=== PATIENT | male | born 1985 | race African-American/Black ===

== ENCOUNTER 2017-06-24 15:23 | Emergency (ER) | payer SELFPAY ==
[2017-06-24] MEDS ORDERED: NORMAL SALINE 1000 ML 1,000 ML IV ONE (15:53)
[2017-06-24] MEDS ORDERED: DIAZEPAM INJ 10 MG/2 ML DISP.SYRIN IV ONE (16:06)
[2017-06-24 16:22] LABS: ABSOLUTE EOSINOPHILS # (AUTO) 0.1 10^3/uL (0.0-0.6); ABSOLUTE LYMPHOCYTES (AUTO) 2.1 10^3/uL (0.5-4.7); ABSOLUTE MONOCYTES (AUTO) 0.7 10^3/uL (0.1-1.4); BASOPHILS % (AUTO) 0.4 % (0-2); EOSINOPHILS % (AUTO) 0.9 % (0-6); HEMATOCRIT 41.3 % (37.9-51.0); HEMOGLOBIN 13.9 g/dL (13.5-17.0); HGB HCT DIFFERENCE 0.4; LYMPHOCYTES % (AUTO) 26.4 % (13-45); MEAN CORPUSCULAR HEMOGLOBIN 29.5 pg (27.0-33.4); MEAN CORPUSCULAR HGB CONC 33.7 g/dL (32.0-36.0); MEAN CORPUSCULAR VOLUME 87 fl (80-97); RED BLOOD COUNT 4.73 10^6/uL (4.35-5.55); RED CELL DISTRIBUTION WIDTH 13.7 % (11.5-14.0); SEGMENTED NEUTROPHILS % (AUTO) 63.3 % (42-78); WHITE BLOOD COUNT 7.9 10^3/uL (4.0-10.5)
[2017-06-24 16:35] LABS: ALANINE AMINOTRANSFERASE 33 U/L (21-72); ALBUMIN 4.4 g/dL (3.5-5.0); ALKALINE PHOSPHATASE 55 U/L (38-126); ANION GAP 9 (5-19); ASPARTATE AMINO TRANSFERASE 32 U/L (17-59); BILIRUBIN,DIRECT 0.4 mg/dL (0.0-0.4); BILIRUBIN,TOTAL 1.1 mg/dL (0.2-1.3); BLOOD UREA NITROGEN 14 mg/dL (7-20); CALCIUM 9.8 mg/dL (8.4-10.2); CARBON DIOXIDE 27 mmol/L (22-30); CHLORIDE 103 mmol/L (98-107); CREATINE KINASE 456 U/L (55-170); CREATININE RESULT 1.01 mg/dL (0.52-1.25); GLUCOSE 89 mg/dL (75-110); MAGNESIUM 2.1 mg/dL (1.6-2.3); POTASSIUM 3.9 mmol/L (3.6-5.0); SODIUM 138.7 mmol/L (137-145); TOTAL PROTEIN 7.1 g/dL (6.3-8.2)
--- NOTE | 2017-06-24 17:07 | RADIOLOGY REPORT (SQ) ---
EXAM DESCRIPTION: CHEST SINGLE VIEW COMPLETED DATE/TIME: 06/24/2017 4:38 pm REASON FOR STUDY: muscle spasms COMPARISON: None. EXAM PARAMETERS: NUMBER OF VIEWS: One view. TECHNIQUE: Single frontal radiographic view of the chest acquired. RADIATION DOSE: NA LIMITATIONS: None. FINDINGS: LUNGS AND PLEURA: No opacities, masses or pneumothorax. No pleural effusion. MEDIASTINUM AND HILAR STRUCTURES: No masses. Contour normal. HEART AND VASCULAR STRUCTURES: Heart normal in size. Normal vasculature. BONES: No acute findings. HARDWARE: None in the chest. OTHER: No other significant finding. IMPRESSION: NO ACUTE RADIOGRAPHIC FINDING IN THE CHEST. TECHNICAL DOCUMENTATION: JOB ID: [id number]
--- NOTE | 2017-06-24 17:28 | ER Document Report ---
ED General - General Chief Complaint: Other Stated Complaint: MUSCLE SPASMS Time Seen by Provider: 06/24/17 15:29 - HPI Notes: Patient is a 32-year-old male with a history of diabetes who presents the ED complaining of muscle spasms, decreased appetite, decreased sleep, fatigue, stress, anxiousness, dozing in and out consciousness 1 week with worsening symptoms over the last 1-2 days. states that he has been very stressed with moving his family over the last couple of months. states that they were on their way to [place] when they found her cane was commented and they were going to be in the track of it so they packed up and move back. Patient states that he has not been sleeping well and has been forcing himself week. Patient states that he has been having generalized muscle spasming. He does not take any medications daily. He denies any drug allergies. He does not have any sharp pain or previous injury. Denies any headache, fever, head injury , neck pain, changes in vision/speech/mentation/hearing, URI, sore throat, chest pain, palpitations, syncope, cough, shortness of breath, wheeze, dyspnea, abdominal pain, nausea/vomiting/diarrhea, urinary retention, dysuria, hematuria , numbness/tingling, or rash. - Related Data Allergies/Adverse Reactions: No Known Allergies Allergy (Verified 06/24/17 15:26) Past Medical History - Social History Smoking Status: Former Smoker Chew tobacco use (# tins/day): No Frequency of alcohol use: None Drug Abuse: None Family History: Reviewed & Not Pertinent Past Surgical History: Reports: Hx Orthopedic Surgery Review of Systems - Review of Systems Notes: REVIEW OF SYSTEMS: CONSTITUTIONAL : Denies fever, chills, or sweats. Denies recent illness. EENT: Denies eye, ear, throat, or mouth pain or symptoms. Denies nasal or sinus congestion or discharge. Denies throat, tongue, or mouth swelling or difficulty swallowing. CARDIOVASCULAR: Denies chest pain. Denies palpitations or racing or irregular heart beat. Denies ankle edema. RESPIRATORY: Denies cough, cold, or chest congestion. Denies shortness of breath, difficulty breathing, or wheezing. GASTROINTESTINAL: Denies abdominal pain or distention. Denies nausea, vomiting , or diarrhea. Denies blood in vomitus, stools, or per rectum. Denies black, tarry stools. Denies constipation. GENITOURINARY: Denies difficulty urinating, painful urination, burning, frequency, blood in urine, or discharge. MUSCULOSKELETAL: Denies back or neck pain or stiffness. Denies joint pain or swelling. SKIN: Denies rash, lesions or sores. NEUROLOGICAL: see hpi. Denies confusion or altered mental status. Denies passing out or loss of consciousness. Denies dizziness or lightheadedness. Denies headache. Denies weakness or paralysis or loss of use of either side. Denies problems with gait or speech. Denies sensory loss, numbness, or tingling. Denies seizures. PSYCHIATRIC: see hpi. Denies depression, suicidal ideation, or homicidal ideation. ALL OTHER SYSTEMS REVIEWED AND NEGATIVE. Dictation was performed using [employer] voice recognition software Physical Exam - Vital signs Vitals: Temp Pulse Resp BP Pulse Ox 98.4 F 74 16 159/87 H 99 06/24/17 15:25 06/24/17 15:25 06/24/17 15:25 06/24/17 15:25 06/24/17 15:25 Notes: PHYSICAL EXAMINATION: GENERAL: Well-appearing, well-nourished and in no acute distress. A&Ox4 HEAD: Atraumatic, normocephalic. Non-tender. EYES: Pupils equal round and reactive to light, extraocular movements intact, sclera anicteric, conjunctiva are normal. ENT: EAC clear b/l. TM's intact b/l without erythema, fluid, or perforation. Nares patent and without discharge. oropharynx clear without exudates. No tonsilar hypertrophy or erythema. Moist mucous membranes. No sinus tenderness. NECK: Normal range of motion, supple without lymphadenopathy. No rigidity. No midline tenderness. Spurling negative. NEXUS negative. Chest: No flail chest. equal rise/fall. Non-tender LUNGS: Breath sounds clear to auscultation bilaterally and equal. No wheezes rales or rhonchi. HEART: Regular rate and rhythm without murmurs, rubs, gallops. ABDOMEN: Soft, nontender, nondistended abdomen. No guarding, no rebound. No masses appreciated. Normal bowel sounds present. No CVA tenderness bilaterally. Musculoskeletal: Ext b/l: FROM to passive/active. Strength 5+/5. No deficits noted. No bony tenderness of extremities. + Visual spasming noted to the extremities b/l. Back: FROM to passive/active. Strength 5+/5. No vertebral point tenderness, stepoffs, or deformities. No other bony tenderness or ecchymosis. SLR negative b/l. Extremities: No cyanosis, clubbing, or edema b/l. Peripheral pulses 2+. Capillary refill less than 2 seconds. NEUROLOGICAL: MMSE intact. Cranial nerves grossly intact. Normal speech. Normal sensory, motor exams. Reflexes 2+ b/l. NATE's negative. Pronator drift negative. Heel/lopez, finger/nose wnl. PSYCH: Normal mood, normal affect. SKIN: Warm, Dry, normal turgor, no rashes or lesions noted. Course - Re-evaluation Re-evalutation: 06/24/17 17:30 Patient is an afebrile, well-hydrated, 32-year-old male who presents the ED with anxiety and stress. Vitals are stable. PE unremarkable for any focal neurological deficits. Reviewed with Dr. Moore who also eval'd the patient. Pt was given 1L NS, 5mg Valium with a CBC, CMP, UA/Urine drug screen. CBC, CMP unremarkable. Urine had yet to be collected. After the Valium was given, patient became very talkative, but emotional. Pt was stating how stressed he has been, crying, forcing himself awake every night by walking around, sleeping only 1 hour in the last week approx, and contemplating if he is doing right by his family for moving them frequently. Pt's parents did arrive and were talking with the patient as well. We offered for the patient to stay in the ED for a psych eval. He reviewed this with his family and they declined at this time. Pt would like to go home and have his family help him with his stress. He also declined any Rx's (i.e. valium). resource packet provided. Low suspicoin for any systemic emergent condition at this time. Pt is aware that his condition can change from initial presentation and he needs to monitor symptoms closely and seek medical attention if so. Conservative measures for symptoms otherwise. Recheck with PCM in 2-3 days. Consider consult with Psych/MH. Return to the ED with any worsening/concerning symptoms otherwise as reviewed discharge. Patient and family are in agreement. - Vital Signs Vital signs: Temp Pulse Resp BP Pulse Ox 98.4 F 74 16 159/87 H 99 06/24/17 15:25 06/24/17 15:25 06/24/17 15:25 06/24/17 15:25 06/24/17 15:25 - Laboratory Result Diagrams: 06/24/17 16:00 06/24/17 16:00 Laboratory results interpreted by me: 06/24/17 16:00 Creatine Kinase 456 H Discharge - Discharge Clinical Impression: Anxiety in acute stress reaction Condition: Stable Disposition: HOME, SELF-CARE Instructions: Anxiety (OM) Additional Instructions: Maintain adequate fluid and food intake Rest De-stressing techniques Cool/warm compresses may help Consider a massage Recheck with your PCM in 2-3 days Consider counseling for your stress and anxiety Return to the ED with any worsening symptoms and/or development of fever, headache, chest pain, palpitations, syncope, shortness of breath, trouble breathing, abdominal pain, n/v/d, blood in stool/urine, loss of control of bowel /bladder, urinary retention, muscle weakness/paralysis, saddle anesthesia, numbness/tingling, or other worsening symptoms that are concerning to you. Forms: Elevated Blood Pressure Referrals: [facility] [Provider Group] - Follow up as needed [facility] [Provider Group] - Follow up as needed [facility] [Provider Group] - Follow up as needed
[2017-06-24 19:02] VITALS: BP 153/89
--- NOTE | 2017-06-24 20:15 | EKG REPORT ---
SEVERITY:- NORMAL ECG - SINUS RHYTHM : Confirmed by: Tai Monroe MD 24-Jun-2017 20:15:20
== END 2017-06-24 19:02 | disposition home or self-care (01) ==
LOC: ER 15:23
DX: F41.9 Anxiety disorder, unspecified (principal); F43.0 Acute stress reaction; M62.838 Other muscle spasm
CPT/HCPCS: 93005; 99284; 96374; 36415; 82550; 83735; 85025; 80053; 71010; 93010; J3360; J7030

== ENCOUNTER 2017-06-27 12:51 | Emergency (ER) | payer SELFPAY ==
--- NOTE | 2017-06-27 14:00 | ER Document Report ---
ED Medical Screen (RME) - General Chief Complaint: Possible Overdose Stated Complaint: DIZZINESS Time Seen by Provider: 06/27/17 13:56 Notes: Patient was here recently due to having trouble coping and stress. At that time he did not wait for a psychiatric evaluation. According to mom he did not follow-up. Mom states now for the last several days patient has been staring and repeating the same words over and over. She states that he is unable to follow simple directions. Patient will not interact with me to give a history. TRAVEL OUTSIDE OF THE [place] IN LAST 30 DAYS: No - Related Data Allergies/Adverse Reactions: No Known Allergies Allergy (Verified 06/27/17 13:09) Past Medical History Renal/ Medical History: Denies: Hx Peritoneal Dialysis Past Surgical History: Reports: Hx Orthopedic Surgery Physical Exam - Vital signs Vitals: Temp Pulse Resp BP Pulse Ox 99.2 F 99 18 159/101 H 100 06/27/17 13:05 06/27/17 13:05 06/27/17 13:05 06/27/17 13:05 06/27/17 13:05 Course - Vital Signs Vital signs: Temp Pulse Resp BP Pulse Ox 99.2 F 99 18 159/101 H 100 06/27/17 13:05 06/27/17 13:05 06/27/17 13:05 06/27/17 13:05 06/27/17 13:05
--- NOTE | 2017-06-27 15:01 | ER Document Report ---
ED General - General Mode of Arrival: Ambulatory Information source: Patient TRAVEL OUTSIDE OF THE [place] IN LAST 30 DAYS: No - HPI Onset: Just prior to arrival Onset/Duration: Persistent <SHILO MEJIA - Last Filed: 06/27/17 17:13> <RAFAELDESEAN TIAGO - Last Filed: 06/27/17 21:54> - General Chief Complaint: Possible Overdose Stated Complaint: DIZZINESS Time Seen by Provider: 06/27/17 13:56 Notes: Patient is a 32 year old male that presents to the emergency department today with complaints of bizarre behavior over the last few days. Patient was seen here three days ago for "muscle spasms" which turned into a pysch consult but at that time the patient and family deferred the psych consult. Today the patient's mother is at bedside and she states that the patient decided to move to [place] so he loaded a uhaul and drove to there and then turned right back around and came back here. She reports him acting very bizarre including not eating or drinking. Patient denies any drug usage. (SHILO MEJIA) - Related Data Allergies/Adverse Reactions: No Known Allergies Allergy (Verified 06/27/17 13:09) Home Medications: Current Home Medications No Home Medications 06/27/17 [History] Past Medical History - General Information source: Patient - Social History Smoking Status: Never Smoker Cigarette use (# per day): No Frequency of alcohol use: None Drug Abuse: None Lives with: Family Family History: Reviewed & Not Pertinent - Medical History Medical History: Negative Past Surgical History: Reports: Hx Orthopedic Surgery <SHILO MEJIA - Last Filed: 06/27/17 17:13> Review of Systems - Review of Systems Constitutional: No symptoms reported EENT: No symptoms reported Cardiovascular: No symptoms reported Respiratory: No symptoms reported Gastrointestinal: No symptoms reported Genitourinary: No symptoms reported Male Genitourinary: No symptoms reported Musculoskeletal: No symptoms reported Skin: No symptoms reported Hematologic/Lymphatic: No symptoms reported Neurological/Psychological: See HPI, Other - Bizarre behavior, disoriented, not sleeping -: Yes All other systems reviewed and negative <SHILO MEJIA - Last Filed: 06/27/17 17:13> Physical Exam - Vital signs Interpretation: Normal - General General appearance: Alert In distress: None - HEENT Head: Normocephalic, Atraumatic Eyes: Normal Pupils: PERRL - Respiratory Respiratory status: No respiratory distress Chest status: Nontender Breath sounds: Normal Chest palpation: Normal - Cardiovascular Rhythm: Regular Heart sounds: Normal auscultation Murmur: No - Abdominal Inspection: Normal Distension: No distension Bowel sounds: Normal Tenderness: Nontender Organomegaly: No organomegaly - Back Back: Normal, Nontender - Extremities General upper extremity: Normal inspection, Nontender, Normal color, Normal ROM , Normal temperature General lower extremity: Normal inspection, Nontender, Normal color, Normal ROM , Normal temperature, Normal weight bearing. No: Maddy's sign - Neurological Neuro grossly intact: Yes Cognition: Normal Orientation: AAOx4 Spring Coma Scale Eye Opening: Spontaneous Donnell Coma Scale Verbal: Oriented Donnell Coma Scale Motor: Obeys Commands Spring Coma Scale Total: 15 Speech: Normal Motor strength normal: LUE, RUE, LLE, RLE Sensory: Normal - Psychological Associated symptoms: Flat affect, Unable to sleep, Other - Appears to respond to internal stimuli - Skin Skin Temperature: Warm Skin Moisture: Dry Skin Color: Normal <DESEAN HALL - Last Filed: 06/27/17 21:54> - Vital signs Vitals: Temp Pulse Resp BP Pulse Ox 99.2 F 99 18 159/101 H 100 06/27/17 13:05 06/27/17 13:05 06/27/17 13:05 06/27/17 13:05 06/27/17 13:05 Course - Laboratory Result Diagrams: 06/27/17 14:52 06/27/17 14:52 <SHILO MEJIA - Last Filed: 06/27/17 17:13> - Laboratory Result Diagrams: 06/27/17 14:52 06/27/17 14:52 - Diagnostic Test Radiology reviewed: Reports reviewed <DESEAN HALL - Last Filed: 06/27/17 21:54> - Re-evaluation Re-evalutation: 06/27/17 Patient is a 32-year-old male who is brought in by his family. Patient has not been sleeping. Patient is not acting himself. 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 Apparently he is going to be moving to [place] drove their turn around and drove back. He has been exhibiting unusual behavior for him. Patient appears disheveled which is also unlike him. Patient has no past psychiatric history. Patient is medically stable and will be held for further psychiatric evaluation , placed on IVC paperwork. (DESEAN HALL) - Vital Signs Vital signs: Temp Pulse Resp BP Pulse Ox 97.9 F 69 14 165/89 H 100 06/27/17 19:10 06/27/17 19:10 06/27/17 19:10 06/27/17 19:10 06/27/17 19:10 - Laboratory Laboratory results interpreted by me: 06/27/17 06/27/17 14:52 14:52 Calcium 10.7 H Total Bilirubin 1.5 H Direct Bilirubin 0.5 H Urine Ketones 80 H Salicylates < 1.0 L Acetaminophen < 10 L Discharge <SHILO MEJIA - Last Filed: 06/27/17 17:13> <DESEAN HALL - Last Filed: 06/27/17 21:54> - Discharge Clinical Impression: Acute psychosis Condition: Stable Disposition: PSYCH HOSP/UNIT Scribe Attestation: 06/27/17 21:54 I personally performed the services described in the documentation, reviewed and edited the documentation which was dictated to the scribe in my presence, and it accurately records my words and actions. (DESEAN HALL) Scribe Documentation - Scribe Written by Scribe:: Rad Gamez, 06/27/2017 1732 acting as scribe for :: Rafael <SHILO MEJIA - Last Filed: 06/27/17 17:13>
[2017-06-27 15:06] LABS: ABSOLUTE EOSINOPHILS # (AUTO) 0.2 10^3/uL (0.0-0.6); ABSOLUTE LYMPHOCYTES (AUTO) 2.8 10^3/uL (0.5-4.7); ABSOLUTE MONOCYTES (AUTO) 0.7 10^3/uL (0.1-1.4); ABSOLUTE NEUT (AUTO) 5.3 10^3/uL (1.7-8.2); BASOPHILS % (AUTO) 0.4 % (0-2); EOSINOPHILS % (AUTO) 2.3 % (0-6); HEMATOCRIT 46.9 % (37.9-51.0); HEMOGLOBIN 15.6 g/dL (13.5-17.0); HGB HCT DIFFERENCE -0.1; LYMPHOCYTES % (AUTO) 30.9 % (13-45); MEAN CORPUSCULAR HEMOGLOBIN 29.2 pg (27.0-33.4); MEAN CORPUSCULAR HGB CONC 33.3 g/dL (32.0-36.0); MEAN CORPUSCULAR VOLUME 88 fl (80-97); MONOCYTES % (AUTO) 7.3 % (3-13); RED BLOOD COUNT 5.33 10^6/uL (4.35-5.55); RED CELL DISTRIBUTION WIDTH 13.6 % (11.5-14.0); SEGMENTED NEUTROPHILS % (AUTO) 59.1 % (42-78)
[2017-06-27 15:25] LABS: ALANINE AMINOTRANSFERASE 37 U/L (21-72); ALBUMIN 4.8 g/dL (3.5-5.0); ALKALINE PHOSPHATASE 61 U/L (38-126); ANION GAP 13 (5-19); ASPARTATE AMINO TRANSFERASE 30 U/L (17-59); BILIRUBIN,DIRECT 0.5 mg/dL (0.0-0.4); BILIRUBIN,TOTAL 1.5 mg/dL (0.2-1.3); BLOOD UREA NITROGEN 13 mg/dL (7-20); CALCIUM 10.7 mg/dL (8.4-10.2); CARBON DIOXIDE 27 mmol/L (22-30); CHLORIDE 99 mmol/L (98-107); CREATININE RESULT 1.03 mg/dL (0.52-1.25); GLUCOSE 82 mg/dL (75-110); POTASSIUM 4.7 mmol/L (3.6-5.0); TOTAL PROTEIN 7.9 g/dL (6.3-8.2)
[2017-06-27 15:27] LABS: ALCOHOL < 10 mg/dL (NONE DETECTED)
--- NOTE | 2017-06-27 15:31 | RADIOLOGY REPORT (SQ) ---
EXAM DESCRIPTION: CT HEAD WITHOUT COMPLETED DATE/TIME: 06/27/2017 3:13 pm REASON FOR STUDY: catatonia COMPARISON: None. TECHNIQUE: Axial images acquired through the brain without intravenous contrast. Images reviewed wi th bone, brain and subdural windows. Images stored on PACS. All CT scanners at this facility use dose modulation, iterative reconstruction, and/or weight based d osing when appropriate to reduce radiation dose to as low as reasonably achievable (ALARA). [facility]: Dose Right [facility]: CareDose [facility]: Dose Right [facility]: Teradose 4D [facility]: Smart Eqalix RADIATION DOSE: Up-to-date CT equipment and radiation dose reduction techniques were employed. CTDIv ol: 29.1 mGy. DLP: 687 mGy-cm. mGy. LIMITATIONS: Motion. FINDINGS: VENTRICLES: Normal size and contour. CEREBRUM: No masses. No hemorrhage. No midline shift. No evidence for acute infarction. Normal gra y/white matter differentiation. No areas of low density in the white matter. CEREBELLUM: No masses. No hemorrhage. No alteration of density. No evidence for acute infarction. EXTRAAXIAL SPACES: No fluid collections. No masses. ORBITS AND GLOBE: No intra- or extraconal masses. Normal contour of globe without masses. CALVARIUM: No fracture. PARANASAL SINUSES: No fluid or mucosal thickening. SOFT TISSUES: No mass or hematoma. OTHER: No other significant finding. IMPRESSION: NORMAL BRAIN CT WITHOUT CONTRAST. COMMENT: Quality ID # [id number]: Final reports with documentation of one or more dose reduction techniques (e.g., Automated exposure control, adjustment of the mA and/or kV according to patient size, use of iterative reconstruction technique) TECHNICAL DOCUMENTATION: JOB ID: [id number] [employer]- All Rights Reserved
[2017-06-27 16:12] LABS: APPEARANCE,URINE CLEAR; BILIRUBIN,URINE NEGATIVE (NEGATIVE); GLUCOSE, URINE NEGATIVE (NEGATIVE); KETONES,URINE 80 mg/dL (NEGATIVE); LEUKOCYTE ESTERASE,URINE NEGATIVE (NEGATIVE); NITRITE,URINE NEGATIVE (NEGATIVE); PROTEIN,URINE NEGATIVE (NEGATIVE); URINE SPECIFIC GRAVITY 1.013; UROBILINOGEN,URINE NEGATIVE mg/dL (<2.0)
[2017-06-27] MEDS ORDERED: NORMAL SALINE 1000 ML 1,000 ML IV ONE (16:18)
[2017-06-27 16:26] LABS: URINE BARBITURATES SCREEN NEGATIVE; URINE METHADONE SCREEN NEGATIVE; URINE OPIATES LOW NEGATIVE; URINE PHENCYCLIDINE SCREEN NEGATIVE
--- NOTE | 2017-06-27 17:05 | ER Document Report ---
ED Psych Disorder / Suicide - General Information source: Patient, Parent - mother is bedside, Relative - is bedside TRAVEL OUTSIDE OF THE [place] IN LAST 30 DAYS: No - HPI Patient complains to provider of: Bizarre behavior Onset: Other - March 2017 Onset was: Gradual Suicide Risk Factors: Frightened friends/family, Male Situational problems related to: Other - normal life stressors Normal mood: No Associated symptoms: Auditory hallucinations - pt presents as though he is responding to internal stimuli, Flat affect, Paranoid, Other - random words/ thoughts blurted out Similar symptoms previously: Yes - family reports today is worse Recently seen / treated by doctor: Yes - [facility] ER <CARLOS PANIAGUA - Last Filed: 06/27/17 17:12> <RADHA MASTERSON - Last Filed: 07/01/17 10:27> - General Chief Complaint: Possible Overdose Stated Complaint: DIZZINESS Time Seen by Provider: 06/27/17 13:56 - HPI Notes: Patient is a 32 year old male who presents via his mother and due to concerns over bizarre behaviors. Current presentation includes patient staring off, randomly stating words unrelated to conversation or at abrupt times, etc. Family denies this has occurred in the past, but states he has been acting strange since about March 2016. Patient himself denies suicidal/homicidal ideations. Patient denies hearing voices, seeing things, etc. Attempted to discuss this with patient a myriad of ways, but continues to deny. Patient presents as though he is responding to internal stimuli, aeb staring off, mouthing words, stating random words at random times, etc. 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 She states he slowly worsened, and he was distraught over their living arrangements, which [place]. She states he struggled to sleep and would pace and repeatedly apologize for moving there. She states they were eventually able to get out of their lease because they were not made aware of the flight zone. She states 2 weeks ago he decided they needed to move back to [place], they were there for a couple of days and he decided they needed to move back to [place]. She states they are staying with her parents, just to alleviate some stress and register their child in school. 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 She states the patient did bathe today, but otherwise has not regularly cared for himself. reports that he is normally well groomed with twice daily baths. states the patient just repeats random works, or says he is sorry for moving, etc. Mother is bedside and state she has been worried about the patient due to the abnormal behavioral presentation, and this morning when she spoke with him on the phone thought he was not himself and drove here. She denies any prior familial psychiatric history. Patient is disoriented. Mood is dysphoric with flat affect. Patient denies suicidal/homicidal ideations, intent, plan or means. Patient denies A/V H; however, presents as though he is experiencing internal stimuli. Thought processes were disorganized. Conversational speech was minimal and when he did verbally respond was difficult to understand. Intellectual abilities were estimated within average range. Attention and focus were poor. Insight, judgment , and impulse control were poor. Unspecified Schizophrenia or Related Psychosis Patient is recommended for IVC and is considered a danger to himself and possibly others. The exact etiology of his presentation is unknown as family reports no prior psychiatric history; however, patient presents as though he is experiencing internal stimuli, has not engaged in self care/disheveled, etc.. Patient will be reevaluated in the morning for further disposition and recommendations. I consulted with Dr. Adam in regards to the care and management of this patient. ED MD is in agreement with disposition and recommendation. Note, toxicology is positive for benzo; however, patient received a Valium during his most recent episode here in the ER. Family maintains he does not abuse drugs and or alcohol. (CARLOS PANIAGUA) Conducted re-evaluation on 06/28/2017 at 0914. Mother and present. Observed patient in bed. He presented with lethargic state AEB heavy eye lids, mumbling, and inability to form complete sentences, and falling asleep. 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 She stated he had been researching ADHD /ADD information since he had been diagnosed when he was younger and felt he had difficulty focusing and organizing his thoughts. Mother identified it was recommended he be prescribed Ritalin when he was younger however she declined, otherwise no other MH issues. Family stated patient had not been to any outpatient MH providers. Mother reported patient's biological father had problems with addiction and had been to psychiatric facilities. Family stated last evening after getting medications patient was able to complete smaller sentences, he interacted more, and he ate his dinner. stated he would say "everything is going to be okay but things don't make sense right now." Overheard patient on the phone with his children. He formulated small sentences at that time. Diagnosis: V62.89 (Z65.8) Other Problem Related to Psychosocial Circumstances Lack of sleep R/O 296.24 (F32.3) (F32.9) Major Depressive Disorder with psychotic features Impression/Plan: Recommendation to maintain IVC given patient's lethargic state with what appears to be an inability to process thoughts, formulate sentences, which is not characteristic of patient. He has had numerous stressors since February 2017, and has not had good sleep since March 2017. Will begin a scheduled medication regimen, seek inpatient placement, and reassess tomorrow morning. Consulted with Dr. Adam regarding the management and care of patient. ED Physician in agreement with recommendations. Conducted re-evaluation on 06/29/2017 at 0850. Patient stated he was "alright." He appeared more alert (no heavy eyelids) with brighter affect, however as soon as this clinician asked questions he seemed to shut down (closed eyes, would or could not answer questions). He identified he did not remember why he is in the ED. reported he slept through the night. Mom stated he was able to open the plastic utensils for breakfast on his own without assistance (needed help yesterday). Diagnosis: V62.89 (Z65.8) Other Problem Related to Psychosocial Circumstances Lack of sleep R/O 296.24 (F32.3) (F32.9) Major Depressive Disorder with psychotic features Impression/Plan: Recommendation to maintain IVC. A scheduled medication regimen was put into place yesterday. There appeared to be some improvement as patient did not appear as lethargic, however he continued to not formulate sentences or carry on dialogue conversation and seemed confused. Patient accepted to [facility]. Will move forward with this placement. Consulted with Dr. Adam regarding the management and care of patient. ED Physician in agreement with recommendations. (RADHA MASTERSON) - Related Data Allergies/Adverse Reactions: No Known Allergies Allergy (Verified 06/27/17 13:09) Home Medications: Current Home Medications No Home Medications 06/27/17 [History] Past Medical History - Social History Family History: Reviewed & Not Pertinent Renal/ Medical History: Denies: Hx Peritoneal Dialysis Past Surgical History: Reports: Hx Orthopedic Surgery <CARLOS PANIAGUA - Last Filed: 06/27/17 17:12> - Vital signs Vitals: Temp Pulse Resp BP Pulse Ox 99.2 F 99 18 159/101 H 100 06/27/17 13:05 06/27/17 13:05 06/27/17 13:05 06/27/17 13:05 06/27/17 13:05 Course - Laboratory Result Diagrams: 06/27/17 14:52 06/27/17 14:52 <CARLOS PANIAGUA - Last Filed: 06/27/17 17:12> - Laboratory Result Diagrams: 06/27/17 14:52 06/27/17 14:52 <RADHA MASTERSON - Last Filed: 07/01/17 10:27> - Vital Signs Vital signs: Temp Pulse Resp BP Pulse Ox 98.3 F 76 18 132/76 H 99 06/29/17 15:30 06/29/17 15:30 06/29/17 15:30 06/29/17 15:30 06/29/17 15:30 - Laboratory Laboratory results interpreted by me: 06/27/17 06/27/17 14:52 14:52 Calcium 10.7 H Total Bilirubin 1.5 H Direct Bilirubin 0.5 H Urine Ketones 80 H Salicylates < 1.0 L Acetaminophen < 10 L Discharge <CARLOS PANIAGUA - Last Filed: 06/27/17 17:12> <RADHA MASTERSON - Last Filed: 07/01/17 10:27> - Discharge Clinical Impression: Acute psychosis Condition: Stable Disposition: PSYCH HOSP/UNIT
[2017-06-27] MEDS ORDERED: BENZTROPINE MESYLATE 1 MG TABLET PO ONE (17:08)
[2017-06-27] MEDS ORDERED: OLANZAPINE 5 MG TAB.RAPDIS PO ONE (17:08)
--- NOTE | 2017-06-27 20:00 | EKG REPORT ---
SEVERITY:- ABNORMAL ECG - SINUS RHYTHM CONSIDER LEFT VENTRICULAR HYPERTROPHY ST ELEV, PROBABLE NORMAL EARLY REPOL PATTERN PROLONGED QT INTERVAL : Confirmed by: Philip Greenberg 27-Jun-2017 20:00:06
[2017-06-27] MEDS ORDERED: HALOPERIDOL LACTATE INJ 5 MG/1 ML VIAL IM ONE (23:38)
[2017-06-27] MEDS ORDERED: HALOPERIDOL LACTATE INJ 5 MG/1 ML VIAL ONE (23:42)
--- NOTE | 2017-06-28 10:14 | ER Document Report ---
Doctor's Note Notes: 06/28/17 10:11 Rounds: Chart reviewed and patient interviewed. Actually, spoke mostly with the who is at the bedside. Patient is sleeping, though he awakens during my interview. He seems to be stable. Vital signs show a blood pressure 165/89 but otherwise are normal. Patient has a history of high blood pressure, but has not been on any medications. I advised him to have his blood pressure rechecked by a healthcare provider in 1 or 2 weeks. No meds at this time. Lab studies were positive for benzos, but otherwise labs were normal. Patient appears to be medically stable for transfer or discharge. Fatoumata Bonilla MD
[2017-06-28] MEDS: BENZTROPINE MESYLATE 1 MG TABLET PO SCH (11:38)
[2017-06-28] MEDS: OLANZAPINE 5 MG TABLET PO SCH (11:38)
[2017-06-29] MEDS: BENZTROPINE MESYLATE 1 MG TABLET PO SCH (09:59)
--- NOTE | 2017-06-29 09:59 | ER Document Report ---
Doctor's Note Notes: 06/29/17 09:58 Patient resting comfortably on stretcher with at bedside, he is eating some breakfast this morning but remains nonverbal during the interview, information is obtained from the reporting that he was groggy most of the day yesterday but seems to be slightly more clear today, labs and vital signs were reviewed and unremarkable, patient will remain in the emergency room until more appropriate placement for safe discharge can be arranged, patient is medically stable
[2017-06-29] MEDS: OLANZAPINE 5 MG TABLET PO SCH (10:00)
[2017-06-29 15:53] VITALS: BP 132/76
== END 2017-06-29 15:40 ==
LOC: ER 12:51
DX: F23 Brief psychotic disorder (principal); R42 Dizziness and giddiness; F32.3 Major depressive disorder, single episode, severe with psychotic features; Z65.8 Other specified problems related to psychosocial circumstances
CPT/HCPCS: 93005; 99285; 96372; 36415; 80307 ×4; 85025; 80053; 81001; 70450; 93010; J3490; J1630